=== PATIENT | male | born 1975 | race African-American/Black ===

== ENCOUNTER 2019-03-31 09:43 | Emergency (ER) | payer SELFPAY ==
--- NOTE | 2019-03-31 12:50 | CT ---
CT BRAIN WITHOUT CONTRAST: HISTORY: Headache, hypertension FINDINGS: No evidence of acute infarct, hemorrhage, midline shift or abnormal extra-axial fluid collections is seen. The ventricular size is appropriate and the basilar cisterns are patent. The bony calvarium is intact. There is mucosal disease in the paranasal sinuses. The mastoid air cells are clear. IMPRESSION: 1. No CT evidence of acute intracranial process. 2. Paranasal sinus disease.
== END 2019-03-31 13:47 | disposition home or self-care (01) ==
LOC: ERS 09:43
DX: R51 Headache (principal); F17.210 Nicotine dependence, cigarettes, uncomplicated; I10 Essential (primary) hypertension
CPT/HCPCS: 70450

== ENCOUNTER 2019-04-08 19:28 | Emergency (ER) | payer SELFPAY ==
[2019-04-08] MEDS ORDERED: Ketorolac Tromethamine 30 MG/ML VIAL ONE (20:15)
[2019-04-08] MEDS ORDERED: diphenhydrAMINE 50 MG/ML VIAL ONE (20:15)
[2019-04-08] MEDS ORDERED: Metoclopramide HCl 10 MG/2 ML VIAL ONE (20:15)
[2019-04-08] MEDS ORDERED: Acetaminophen 500 MG TAB ONE (20:23)
[2019-04-08] MEDS ORDERED: methylPREDNISolone Sod Succ/PF 125 MG/2 ML VIAL ONE (21:22)
== END 2019-04-08 22:54 | disposition home or self-care (01) ==
LOC: ERS 19:28
DX: G43.909 Migraine, unspecified, not intractable, without status migrainosus (principal); F17.210 Nicotine dependence, cigarettes, uncomplicated; I10 Essential (primary) hypertension
CPT/HCPCS: 96365; 96366; 96375; J1200; J1885; J2765; J2930

== ENCOUNTER 2020-01-09 23:17 | Emergency (ER) | payer SELFPAY | END 2020-01-10 01:25 | disposition home or self-care (01) | LOC: ERS 23:17 | DX: S50.12XA Contusion of left forearm, initial encounter (principal); S40.022A Contusion of left upper arm, initial encounter; I10 Essential (primary) hypertension; F17.210 Nicotine dependence, cigarettes, uncomplicated; Z79.899 Other long term (current) drug therapy; X58.XXXA Exposure to other specified factors, initial encounter | CPT/HCPCS: 99283 ==

== ENCOUNTER 2020-09-21 14:31 | Emergency (ER) | payer SELFPAY ==
[2020-09-21 23:30] LABS: SARS-CoV-2 PCR by NAA Not Detected (NotDetected)
== END 2020-09-21 15:10 | disposition home or self-care (01) ==
LOC: ERS 14:31
DX: R43.9 Unspecified disturbances of smell and taste (principal); Z20.822 Contact with and (suspected) exposure to COVID-19; I10 Essential (primary) hypertension; F17.210 Nicotine dependence, cigarettes, uncomplicated
CPT/HCPCS: 87635; 99283; U0003; U0005